=== PATIENT | female | born 1955 | race African-American/Black ===

== ENCOUNTER 2018-03-08 01:27 | Inpatient (IN) | payer BC ==
[2018-03-08] VITALS (55 sets, daily range): BP systolic 110–194; BP diastolic 52–119
[~2018-03-08] VITALS: Ht 170.2 cm; Wt 137.4 kg
[2018-03-08] MEDS ORDERED: SODIUM CHLORIDE 0.9% 1,000 ML IV ONE (01:33)
[2018-03-08] MEDS ORDERED: DIPHENHYDRAMINE 50MG/ML VIAL IV ONE (01:45)
[2018-03-08] MEDS ORDERED: FAMOTIDINE 20MG/2ML VIAL IV ONE (01:45)
[2018-03-08] MEDS ORDERED: LORAZEPAM 2MG/ML CPJ IV ONE (01:45)
[2018-03-08] MEDS ORDERED: METHYLPREDNISOLONE SOD SUCC 125 MG/2 ML VIAL IV ONE (01:45)
[2018-03-08 02:17] LABS: BASOPHILS % 0.8 % (0.0-2.0); EOSINOPHILS % 3.4 % (0.0-5.0); HEMATOCRIT. 36.8 % (36.0-48.0); HEMOGLOBIN. 12.6 g/dL (12.0-16.0); LYMPHOCYTES % 26.8 % (20.0-50.0); MEAN CORPUSCULAR HEMOGLOBIN 34.9 pg (28.0-32.0); MEAN CORPUSCULAR VOLUME 102.1 fL (81.0-99.0); MEAN PLATELET VOLUME 11.6 fl (7.4-10.4); MONOCYTES % 8.3 % (2.0-8.0); NEUTROPHILS % 60.7 % (40.0-76.0); PLATELET 242 x1000/uL (130-400); RED BLOOD CELL COUNT 3.61 mill/uL (4.2-5.4)
[2018-03-08 02:22] LABS: CHLORIDE 103 mEq/L (98-107)
[2018-03-08 02:25] LABS: PROTHROMBIN TIME 9.7 sec (9.1-11.1)
[2018-03-08 03:26] LABS: CHLORIDE 104 mEq/L (98-107)
[2018-03-08] MEDS ORDERED: ALBUTEROL (0.083%) 2.5MG/3ML NEB HHN ONE (03:30)
[2018-03-08] MEDS ORDERED: CEFTRIAXONE 1 G PREMIX 50 ML IV ONE (03:45)
[2018-03-08] MEDS ORDERED: AZITHROMYCIN 500 MG in DEXT 5% WATER 250 ML IV ONE (03:45)
[2018-03-08] MEDS ORDERED: FUROSEMIDE 40MG/4ML VIAL IVP NR (08:00)
[2018-03-08] MEDS: METHYLPREDNISOLONE SOD SUCC 40 MG/ML VIAL IV SCH ×4 (09:02→23:57)
[2018-03-08] MEDS: DIPHENHYDRAMINE 50MG/ML VIAL IV SCH ×4 (09:02→23:58)
[2018-03-08] MEDS: FAMOTIDINE 20MG/2ML VIAL IV SCH ×2 (09:02→21:40)
[2018-03-08] MEDS ORDERED: SODIUM BICARBONATE 4% (2.4MEQ) 5ML VIAL IV ONE (09:34)
[2018-03-08] MEDS ORDERED: LIDOCAINE HCL 1% 10 MG/ML 10ML VIAL ONE (09:34)
[2018-03-08] MEDS: LEVOFLOXACIN 500MG PREMIX 100 ML IV SCH (10:33)
[2018-03-08] MEDS: HYDROCODONE/ACETAMINOPHEN 5/325MG TABLET PO PRN ×2 (12:09→18:26)
[2018-03-08 17:26] LABS: CLARITY URINE CLEAR (CLEAR); COLOR URINE YELLOW (YELLOW); KETONES URINE NEGATIVE (NEGATIVE); LEUKOCYTE ESTERASE URINE TRACE (NEGATIVE); NITRITE URINE NEGATIVE (NEGATIVE); OCCULT BLOOD URINE 2+ (NEGATIVE); PROTEIN URINE NEGATIVE (NEGATIVE); SPECIFIC GRAVITY URINE 1.005 (1.005-1.030); UROBILINOGEN URINE 0.2 E.U./dL (0.2-1.0)
[2018-03-08 17:47] LABS: *AMPHETAMINES SCREEN URINE NEGATIVE (NEGATIVE); *BARBITURATES SCREEN URINE NEGATIVE (NEGATIVE); *BENZODIAZEPINES SCREEN URINE NEGATIVE (NEGATIVE); *COCAINE SCREEN URINE NEGATIVE (NEGATIVE); METHADONE URINE SCREEN NEGATIVE (NEGATIVE); OPIATES URINE SCREEN PRESUMTIVE POSITIVE (NEGATIVE)
[2018-03-08 17:48] LABS: CANNABINOID URINE SCREEN NEGATIVE (NEGATIVE); PHENCYCLIDINE URINE SCREEN NEGATIVE (NEGATIVE)
[2018-03-08] MEDS ORDERED: DIPHENHYDRAMINE 50MG/ML VIAL IV NR (21:00)
[2018-03-08] MEDS ORDERED: CYCLOBENZAPRINE 10MG TABLET PO NR (23:30)
[2018-03-08] MEDS: ALLOPURINOL 300 MG TABLET PO SCH (23:58)
[2018-03-09] VITALS (56 sets, daily range): BP systolic 89–162; BP diastolic 40–89
[2018-03-09] MEDS: ZOLPIDEM TARTRATE 5MG TABLET PO PRN (01:45)
[2018-03-09] MEDS: HYDROCODONE/ACETAMINOPHEN 5/325MG TABLET PO PRN ×4 (01:49→22:52)
[2018-03-09] MEDS: METHYLPREDNISOLONE SOD SUCC 40 MG/ML VIAL IV SCH ×4 (05:54→21:03)
[2018-03-09] MEDS: DIPHENHYDRAMINE 50MG/ML VIAL IV SCH ×3 (05:55→18:58)
[2018-03-09 06:31] LABS: BASOPHILS % 0.4 % (0.0-2.0); HEMATOCRIT. 36.8 % (36.0-48.0); HEMOGLOBIN. 12.2 g/dL (12.0-16.0); LYMPHOCYTES % 12.5 % (20.0-50.0); MEAN CORPUSCULAR HEMOGLOBIN 34.3 pg (28.0-32.0); MEAN CORPUSCULAR VOLUME 103.8 fL (81.0-99.0); MEAN PLATELET VOLUME 10.4 fl (7.4-10.4); MONOCYTES % 3.5 % (2.0-8.0); NEUTROPHILS % 83.6 % (40.0-76.0); PLATELET 182 x1000/uL (130-400); RED BLOOD CELL COUNT 3.55 mill/uL (4.2-5.4); RED CELL DISTRIBUTION WIDTH 15.5 % (11.6-14.6)
[2018-03-09] MEDS: FLUTICASONE PROPIONATE 50MCG/SPRAY BOTTLE BOTHNSTRLS SCH ×2 (08:03→19:39)
[2018-03-09] MEDS: LEVOTHYROXINE SODIUM 50MCG TABLET PO SCH (08:03)
[2018-03-09 08:25] LABS: CHLORIDE 105 mEq/L (98-107)
[2018-03-09 08:30] LABS: PHOSPHORUS 2.2 mg/dL (2.5-4.9)
[2018-03-09] MEDS: SERTRALINE HCL 100MG TABLET PO SCH (09:09)
[2018-03-09] MEDS: FAMOTIDINE 20MG/2ML VIAL IV SCH ×2 (09:09→21:03)
[2018-03-09] MEDS: CYCLOBENZAPRINE 10MG TABLET PO SCH ×2 (09:09→16:25)
[2018-03-09] MEDS: ALLOPURINOL 300 MG TABLET PO SCH (09:09)
[2018-03-09] MEDS: LEVOFLOXACIN 500MG PREMIX 100 ML IV SCH (09:11)
[2018-03-09] MEDS ORDERED: FUROSEMIDE 100MG/10ML VIAL IVP SCH (10:30)
[2018-03-09] MEDS: LETROZOLE 2.5MG TABLET PO SCH (11:42)
[2018-03-09] MEDS ORDERED: FUROSEMIDE 40MG/4ML VIAL IVP NR (20:15)
[2018-03-10 05:52] VITALS: BP 173/90
[2018-03-10] MEDS: FLUTICASONE PROPIONATE 50MCG/SPRAY BOTTLE BOTHNSTRLS SCH ×2 (07:40→16:46)
[2018-03-10 08:00] VITALS: BP 117/60
[2018-03-10] MEDS: ALLOPURINOL 300 MG TABLET PO SCH (08:59)
[2018-03-10] MEDS: LEVOTHYROXINE SODIUM 50MCG TABLET PO SCH (08:59)
[2018-03-10] MEDS: CYCLOBENZAPRINE 10MG TABLET PO SCH ×2 (08:59→16:46)
[2018-03-10] MEDS: SERTRALINE HCL 100MG TABLET PO SCH (08:59)
[2018-03-10] MEDS: METHYLPREDNISOLONE SOD SUCC 40 MG/ML VIAL IV SCH ×2 (09:00→20:11)
[2018-03-10] MEDS: FAMOTIDINE 20MG/2ML VIAL IV SCH ×2 (09:00→20:11)
[2018-03-10] MEDS: HYDROCODONE/ACETAMINOPHEN 5/325MG TABLET PO PRN (09:15)
[2018-03-10 10:44] LABS: BASOPHILS % 0.2 % (0.0-2.0); HEMATOCRIT. 34.3 % (36.0-48.0); HEMOGLOBIN. 11.6 g/dL (12.0-16.0); MEAN CORPUSCULAR HEMOGLOBIN 34.6 pg (28.0-32.0); MEAN CORPUSCULAR VOLUME 101.7 fL (81.0-99.0); MEAN PLATELET VOLUME 9.3 fl (7.4-10.4); MONOCYTES % 8.7 % (2.0-8.0); NEUTROPHILS % 82.1 % (40.0-76.0); PLATELET 183 x1000/uL (130-400); RED BLOOD CELL COUNT 3.37 mill/uL (4.2-5.4); RED CELL DISTRIBUTION WIDTH 15.4 % (11.6-14.6)
[2018-03-10 10:46] LABS: PHOSPHORUS 2.2 mg/dL (2.5-4.9)
[2018-03-10] MEDS: LETROZOLE 2.5MG TABLET PO SCH (11:36)
[2018-03-10] MEDS: LEVOFLOXACIN 500MG PREMIX 100 ML IV SCH (11:37)
[2018-03-10] MEDS ORDERED: IOHEXOL-300 100 ML BOTTLE ONE (11:38)
[2018-03-10 12:00] VITALS: BP 151/77
[2018-03-10 16:00] VITALS: BP 151/77
[2018-03-10 20:00] VITALS: BP 145/54
[2018-03-10] MEDS: HYDROCODONE/ACETAMINOPHEN 10/325MG TABLET PO PRN (20:12)
[2018-03-10] MEDS: DIPHENHYDRAMINE 50MG/ML VIAL IV SCH (21:25)
[2018-03-11] VITALS: BP 157/71
[2018-03-11 00:23] LABS: CLARITY URINE CLEAR (CLEAR); COLOR URINE YELLOW (YELLOW); KETONES URINE NEGATIVE (NEGATIVE); LEUKOCYTE ESTERASE URINE TRACE (NEGATIVE); NITRITE URINE NEGATIVE (NEGATIVE); OCCULT BLOOD URINE 2+ (NEGATIVE); PH URINE 8.5 (4.5-8.0); PROTEIN URINE TRACE (NEGATIVE); SPECIFIC GRAVITY URINE 1.018 (1.005-1.030); UROBILINOGEN URINE 0.2 E.U./dL (0.2-1.0)
[2018-03-11 04:00] VITALS: BP 157/88
[2018-03-11] MEDS: DIPHENHYDRAMINE 50MG/ML VIAL IV SCH (05:21)
[2018-03-11] MEDS ORDERED: ALBUTEROL (0.083%) 2.5MG/3ML NEB HHN SCH (07:15)
[2018-03-11 07:31] LABS: PHOSPHORUS 2.7 mg/dL (2.5-4.9)
[2018-03-11] MEDS: FLUTICASONE PROPIONATE 50MCG/SPRAY BOTTLE BOTHNSTRLS SCH ×2 (07:40→18:48)
[2018-03-11 08:00] VITALS: BP 155/82
[2018-03-11 08:05] LABS: BASOPHILS % 0.1 % (0.0-2.0); HEMATOCRIT. 37.6 % (36.0-48.0); HEMOGLOBIN. 12.4 g/dL (12.0-16.0); LYMPHOCYTES % 8.8 % (20.0-50.0); MEAN CORPUSCULAR HEMOGLOBIN 33.9 pg (28.0-32.0); MEAN CORPUSCULAR VOLUME 102.5 fL (81.0-99.0); MEAN PLATELET VOLUME 9.6 fl (7.4-10.4); MONOCYTES % 9.3 % (2.0-8.0); NEUTROPHILS % 81.8 % (40.0-76.0); PLATELET 187 x1000/uL (130-400); RED BLOOD CELL COUNT 3.67 mill/uL (4.2-5.4); RED CELL DISTRIBUTION WIDTH 15.5 % (11.6-14.6)
[2018-03-11 08:54] LABS: CHLORIDE 105 mEq/L (98-107)
[2018-03-11] MEDS ORDERED: ENOXAPARIN 40MG/0.4ML SYR SUBCUT SCH (09:00)
[2018-03-11 09:03] LABS: CREATINE KINASE 92 IU/L (26-192)
[2018-03-11 09:04] LABS: CREATINE KINASE MB FRACTION 1.6 ng/mL (0.5-3.6)
[2018-03-11] MEDS: FAMOTIDINE 20MG/2ML VIAL IV SCH ×2 (09:18→21:17)
[2018-03-11] MEDS: LEVOTHYROXINE SODIUM 50MCG TABLET PO SCH (09:18)
[2018-03-11] MEDS: LETROZOLE 2.5MG TABLET PO SCH (09:19)
[2018-03-11] MEDS: CYCLOBENZAPRINE 10MG TABLET PO SCH (09:19)
[2018-03-11] MEDS: ALLOPURINOL 300 MG TABLET PO SCH (09:19)
[2018-03-11] MEDS: SERTRALINE HCL 100MG TABLET PO SCH (09:19)
[2018-03-11] MEDS: METHYLPREDNISOLONE SOD SUCC 40 MG/ML VIAL IV SCH (09:19)
[2018-03-11] MEDS: ENOXAPARIN 40MG/0.4ML SYR SUBCUT SCH ×2 (09:20→21:19)
[2018-03-11] MEDS: LEVOFLOXACIN 500MG PREMIX 100 ML IV SCH (09:20)
[2018-03-11 12:00] VITALS: BP 154/79
[2018-03-11] MEDS: ALBUTEROL (0.083%) 2.5MG/3ML NEB HHN SCH ×4 (12:00→21:26)
[2018-03-11] MEDS: SOTALOL HCL 80MG TABLET PO SCH ×2 (13:13→21:18)
[2018-03-11] MEDS: AMLODIPINE 2.5MG TABLET PO SCH ×2 (13:14→21:19)
[2018-03-11 13:47] LABS: BG BASE EXCESS 1.5 mmol/L (-2.0-2.0); BG CARBOXYHEMOGLOBIN 0.8 % (0.5-1.5); BG DEOXYHEMOGLOBIN 6.1 % (0.0-5.0); BG FRACTION INSPIRED OXYGEN 21; BG HCO3 ACT 24.1 mmol/L (22.0-26.0); BG METHEMOGLOBIN 0.3 % (0.0-1.5); BG OXYGEN SATURATION 93.8 % (92.0-98.5); BG OXYHEMOGLOBIN 92.8 % (94.0-97.0); BG PCO2 31.7 mmHg (35.0-45.0); BG PH 7.498 (7.350-7.450); BG PO2 63.8 mmHg (75.0-100.0); BG SAMPLE SITE RIGHT RADIAL; BG TOTAL HEMOGLOBIN 13.1 g/dL (12.0-18.0); BG VENT MODE ROOM AIR
[2018-03-11 16:38] LABS: CREATINE KINASE MB FRACTION 1.4 ng/mL (0.5-3.6)
[2018-03-11 20:00] VITALS: BP 168/87
[2018-03-11] MEDS ORDERED: AMLODIPINE 2.5MG TABLET PO SCH (21:00)
[2018-03-11] MEDS: ZOLPIDEM TARTRATE 5MG TABLET PO PRN (21:19)
[2018-03-12] VITALS: BP 144/78
[2018-03-12 00:03] LABS: CREATINE KINASE MB FRACTION 2.4 ng/mL (0.5-3.6)
[2018-03-12] MEDS: ALBUTEROL (0.083%) 2.5MG/3ML NEB HHN SCH ×6 (01:20→21:14)
[2018-03-12 04:00] VITALS: BP 165/75
[2018-03-12 05:30] LABS: BASOPHILS % 0.3 % (0.0-2.0); HEMATOCRIT. 37.3 % (36.0-48.0); HEMOGLOBIN. 12.4 g/dL (12.0-16.0); LYMPHOCYTES % 16.2 % (20.0-50.0); MEAN CORPUSCULAR HEMOGLOBIN 34.2 pg (28.0-32.0); MEAN CORPUSCULAR VOLUME 102.4 fL (81.0-99.0); MEAN PLATELET VOLUME 9.2 fl (7.4-10.4); MONOCYTES % 13.9 % (2.0-8.0); NEUTROPHILS % 69.6 % (40.0-76.0); PLATELET 182 x1000/uL (130-400); RED BLOOD CELL COUNT 3.64 mill/uL (4.2-5.4); RED CELL DISTRIBUTION WIDTH 15.6 % (11.6-14.6)
[2018-03-12 07:31] LABS: CHLORIDE 102 mEq/L (98-107)
[2018-03-12 08:09] VITALS: BP 135/82
[2018-03-12] MEDS: LEVOTHYROXINE SODIUM 50MCG TABLET PO SCH (08:58)
[2018-03-12] MEDS: LETROZOLE 2.5MG TABLET PO SCH (08:59)
[2018-03-12] MEDS: AMLODIPINE 2.5MG TABLET PO SCH (08:59)
[2018-03-12] MEDS: SERTRALINE HCL 100MG TABLET PO SCH (08:59)
[2018-03-12] MEDS: ENOXAPARIN 40MG/0.4ML SYR SUBCUT SCH ×2 (09:00→21:09)
[2018-03-12] MEDS: ALLOPURINOL 300 MG TABLET PO SCH (09:00)
[2018-03-12] MEDS: FAMOTIDINE 20MG/2ML VIAL IV SCH ×2 (09:00→21:09)
[2018-03-12] MEDS: SOTALOL HCL 80MG TABLET PO SCH ×2 (09:00→21:09)
[2018-03-12] MEDS: LEVOFLOXACIN 500MG PREMIX 100 ML IV SCH (10:20)
[2018-03-12 12:00] VITALS: BP 152/78
[2018-03-12 16:00] VITALS: BP 153/72
[2018-03-12 20:00] VITALS: BP 169/85
[2018-03-12] MEDS ORDERED: MAGNESIUM XX SCH (20:30)
[2018-03-12] MEDS ORDERED: MAGNESIUM OXIDE 400MG TABLET PO NR (20:45)
[2018-03-12] MEDS: AMLODIPINE 5MG TABLET PO SCH (21:08)
[2018-03-13] VITALS (7 sets, daily range): BP systolic 142–161; BP diastolic 72–93
[2018-03-13] MEDS: ALBUTEROL (0.083%) 2.5MG/3ML NEB HHN SCH ×5 (00:40→20:45)
[2018-03-13] MEDS: LEVOTHYROXINE SODIUM 50MCG TABLET PO SCH (10:14)
[2018-03-13] MEDS: FAMOTIDINE 20MG/2ML VIAL IV SCH ×2 (10:14→21:32)
[2018-03-13] MEDS: AMLODIPINE 5MG TABLET PO SCH ×2 (10:15→21:00)
[2018-03-13] MEDS: SOTALOL HCL 80MG TABLET PO SCH ×2 (10:15→21:32)
[2018-03-13] MEDS: ENOXAPARIN 40MG/0.4ML SYR SUBCUT SCH ×2 (10:23→21:32)
[2018-03-13] MEDS: SERTRALINE HCL 100MG TABLET PO SCH (11:09)
[2018-03-13] MEDS: ALLOPURINOL 300 MG TABLET PO SCH (11:10)
[2018-03-13] MEDS: LETROZOLE 2.5MG TABLET PO SCH (11:10)
[2018-03-13] MEDS ORDERED: LEVOFLOXACIN 500MG PREMIX 100 ML IV SCH (12:30)
[2018-03-13] MEDS ORDERED: LORAZEPAM 2MG/ML CPJ IV NR (15:15)
[2018-03-13 16:21] LABS: HEMATOCRIT 41.3 % (36.0-48.0); HEMOGLOBIN 13.5 g/dL (12.0-16.0); MEAN CORPUSCULAR HEMOGLOBIN 34.1 pg (28.0-32.0); PLATELET 158 x1000/uL (130-400); RED BLOOD CELL COUNT 3.97 mill/uL (4.2-5.4); RED CELL DISTRIBUTION WIDTH 15.9 % (11.6-14.6)
[2018-03-13 16:27] LABS: BG BASE EXCESS -0.2 mmol/L (-2.0-2.0); BG CARBOXYHEMOGLOBIN 1.1 % (0.5-1.5); BG DEOXYHEMOGLOBIN 4.5 % (0.0-5.0); BG FRACTION INSPIRED OXYGEN 36; BG HCO3 ACT 25.1 mmol/L (22.0-26.0); BG OXYGEN SATURATION 95.4 % (92.0-98.5); BG OXYHEMOGLOBIN 94.4 % (94.0-97.0); BG PCO2 43.6 mmHg (35.0-45.0); BG PH 7.378 (7.350-7.450); BG PO2 81.6 mmHg (75.0-100.0); BG SAMPLE SITE RIGHT RADIAL; BG TOTAL HEMOGLOBIN 13.5 g/dL (12.0-18.0); BG VENT MODE NASAL CANNULA
[2018-03-13 16:45] LABS: CHLORIDE 102 mEq/L (98-107)
[2018-03-13] MEDS ORDERED: DEXT 5%/0.45% NACL KCL 40MEQ/L 1,000 ML IV ONE (19:00)
[2018-03-13] MEDS: LEVETIRACETAM 500 MG in SODIUM CHLORIDE 0.9% 100 ML IV SCH (21:33)
[2018-03-13] MEDS: LORAZEPAM 2MG/ML CPJ IV NR (21:53)
[2018-03-14] VITALS (11 sets, daily range): BP systolic 100–151; BP diastolic 44–80
[2018-03-14] MEDS: ACETAMINOPHEN 325MG TABLET PO PRN (00:30)
[2018-03-14] MEDS: ALBUTEROL (0.083%) 2.5MG/3ML NEB HHN SCH ×6 (00:39→21:05)
[2018-03-14] MEDS: LEVOTHYROXINE SODIUM 50MCG TABLET PO SCH (07:30)
[2018-03-14] MEDS: LETROZOLE 2.5MG TABLET PO SCH (08:32)
[2018-03-14] MEDS: SOTALOL HCL 80MG TABLET PO SCH ×2 (08:32→21:00)
[2018-03-14] MEDS: AMLODIPINE 5MG TABLET PO SCH ×2 (08:32→21:00)
[2018-03-14] MEDS: LEVETIRACETAM 500 MG in SODIUM CHLORIDE 0.9% 100 ML IV SCH (08:32)
[2018-03-14] MEDS: FAMOTIDINE 20MG/2ML VIAL IV SCH ×2 (08:32→21:40)
[2018-03-14] MEDS: ENOXAPARIN 40MG/0.4ML SYR SUBCUT SCH ×2 (08:33→21:39)
[2018-03-14] MEDS: ALLOPURINOL 300 MG TABLET PO SCH (09:00)
[2018-03-14] MEDS: SERTRALINE HCL 100MG TABLET PO SCH (09:00)
[2018-03-14] MEDS ORDERED: LORAZEPAM 2MG/ML CPJ IV NR (09:15)
[2018-03-14] MEDS: METRONIDAZOLE 500 MG PREMIX 100 ML IV SCH ×2 (11:00→20:00)
[2018-03-14] MEDS: MULTIVITAMINS,THER W-MINERALS TABLET PO SCH (11:30)
[2018-03-14] MEDS: FOLIC ACID 1MG TABLET PO SCH (11:30)
[2018-03-14] MEDS: THIAMINE HCL 100MG TABLET PO SCH (11:30)
[2018-03-14] MEDS ORDERED: IOHEXOL-300 100 ML BOTTLE ONE (15:02)
[2018-03-14 15:55] LABS: ETHANOL BLOOD < 10 mg/dL
[2018-03-14] MEDS: LORAZEPAM 2MG/ML CPJ IV NR (16:45)
[2018-03-14] MEDS: LEVETIRACETAM 750 MG in SODIUM CHLORIDE 0.9% 100 ML IV SCH (21:38)
[2018-03-15] VITALS (12 sets, daily range): BP systolic 94–132; BP diastolic 53–72
[2018-03-15] MEDS: ALBUTEROL (0.083%) 2.5MG/3ML NEB HHN SCH ×7 (00:08→23:59)
[2018-03-15] MEDS: METRONIDAZOLE 500 MG PREMIX 100 ML IV SCH ×3 (03:55→18:52)
[2018-03-15] MEDS: FOLIC ACID 1MG TABLET PO SCH (08:59)
[2018-03-15] MEDS: LEVOTHYROXINE SODIUM 50MCG TABLET PO SCH (08:59)
[2018-03-15] MEDS: AMLODIPINE 5MG TABLET PO SCH ×2 (08:59→21:00)
[2018-03-15] MEDS: ENOXAPARIN 40MG/0.4ML SYR SUBCUT SCH ×2 (08:59→21:14)
[2018-03-15] MEDS: SOTALOL HCL 80MG TABLET PO SCH ×2 (09:00→21:00)
[2018-03-15] MEDS: SERTRALINE HCL 100MG TABLET PO SCH (09:00)
[2018-03-15] MEDS: THIAMINE HCL 100MG TABLET PO SCH (09:00)
[2018-03-15] MEDS: MULTIVITAMINS,THER W-MINERALS TABLET PO SCH (09:00)
[2018-03-15] MEDS: ALLOPURINOL 300 MG TABLET PO SCH (09:00)
[2018-03-15] MEDS: FAMOTIDINE 20MG/2ML VIAL IV SCH ×2 (09:00→21:14)
[2018-03-15] MEDS: LEVETIRACETAM 750 MG in SODIUM CHLORIDE 0.9% 100 ML IV SCH ×2 (09:03→21:13)
[2018-03-15] MEDS: POTASSIUM CHLORIDE 20MEQ TABLET SR PO SCH ×3 (10:13→16:12)
[2018-03-15] MEDS: LETROZOLE 2.5MG TABLET PO SCH (10:13)
[2018-03-15] MEDS ORDERED: MAGNESIUM SULFATE 3 GM in DEXT 5% WATER 100 ML IV NR (12:00)
[2018-03-15] MEDS: HYDROCODONE/ACETAMINOPHEN 10/325MG TABLET PO PRN (16:12)
[2018-03-15] MEDS: CALCIUM CARBONATE 1250MG TABLET (500MG ELEMENTAL CALCIUM) PO SCH (16:15)
[2018-03-15] MEDS: METRONIDAZOLE 500MG TABLET PO SCH (23:50)
[2018-03-16] VITALS (12 sets, daily range): BP systolic 98–136; BP diastolic 53–71
[2018-03-16] MEDS: ALBUTEROL (0.083%) 2.5MG/3ML NEB HHN SCH ×5 (04:16→20:43)
[2018-03-16 06:36] LABS: HEMOGLOBIN. 10.4 g/dL (12.0-16.0); MEAN CORPUSCULAR HEMOGLOBIN 34.5 pg (28.0-32.0); MEAN CORPUSCULAR VOLUME 103.2 fL (81.0-99.0); MEAN PLATELET VOLUME 10.1 fl (7.4-10.4); PLATELET 108 x1000/uL (130-400); RED CELL DISTRIBUTION WIDTH 15.8 % (11.6-14.6)
[2018-03-16] MEDS: METRONIDAZOLE 500MG TABLET PO SCH ×3 (06:43→21:03)
[2018-03-16 07:06] LABS: CHLORIDE 113 mEq/L (98-107)
[2018-03-16 07:15] LABS: PHOSPHORUS 2.2 mg/dL (2.5-4.9)
[2018-03-16 08:48] LABS: PLATELET ESTIMATE DECREASED
[2018-03-16] MEDS: AMLODIPINE 5MG TABLET PO SCH (09:00)
[2018-03-16] MEDS: LETROZOLE 2.5MG TABLET PO SCH (09:51)
[2018-03-16] MEDS: ENOXAPARIN 40MG/0.4ML SYR SUBCUT SCH (09:51)
[2018-03-16] MEDS: LEVETIRACETAM 750 MG in SODIUM CHLORIDE 0.9% 100 ML IV SCH ×2 (09:51→20:49)
[2018-03-16] MEDS: SOTALOL HCL 80MG TABLET PO SCH (09:52)
[2018-03-16] MEDS: FAMOTIDINE 20MG/2ML VIAL IV SCH ×2 (09:52→20:50)
[2018-03-16] MEDS: ALLOPURINOL 300 MG TABLET PO SCH (09:53)
[2018-03-16] MEDS: SERTRALINE HCL 100MG TABLET PO SCH (09:53)
[2018-03-16] MEDS: LEVOTHYROXINE SODIUM 50MCG TABLET PO SCH (09:53)
[2018-03-16] MEDS: FOLIC ACID 1MG TABLET PO SCH (09:53)
[2018-03-16] MEDS: CALCIUM CARBONATE 1250MG TABLET (500MG ELEMENTAL CALCIUM) PO SCH ×2 (09:53→17:49)
[2018-03-16] MEDS: THIAMINE HCL 100MG TABLET PO SCH (09:53)
[2018-03-16] MEDS: MULTIVITAMINS,THER W-MINERALS TABLET PO SCH (09:53)
[2018-03-16] MEDS: POTASSIUM CHLORIDE 20MEQ TABLET SR PO SCH (09:53)
[2018-03-16] MEDS: CHLORDIAZEPOXIDE 25MG CAPSULE PO SCH ×2 (09:54→20:49)
[2018-03-16] MEDS: APIXABAN 5 MG TABLET PO SCH ×2 (11:42→17:49)
[2018-03-16 12:58] LABS: CLARITY URINE TURBID (CLEAR); COLOR URINE DARK YELLOW (YELLOW); KETONES URINE NEGATIVE (NEGATIVE); LEUKOCYTE ESTERASE URINE 2+ (NEGATIVE); NITRITE URINE NEGATIVE (NEGATIVE); OCCULT BLOOD URINE TRACE (NEGATIVE); PH URINE 5.5 (4.5-8.0); PROTEIN URINE NEGATIVE (NEGATIVE); SPECIFIC GRAVITY URINE 1.016 (1.005-1.030); UROBILINOGEN URINE 0.2 E.U./dL (0.2-1.0)
[2018-03-16] MEDS: ACETAMINOPHEN 325MG TABLET PO PRN (17:49)
[2018-03-16] MEDS: SOTALOL HCL 120MG TABLET PO SCH (20:49)
[2018-03-17] VITALS (13 sets, daily range): BP systolic 97–151; BP diastolic 51–78
[2018-03-17] MEDS: ALBUTEROL (0.083%) 2.5MG/3ML NEB HHN SCH ×6 (01:53→20:02)
[2018-03-17] MEDS: METRONIDAZOLE 500MG TABLET PO SCH ×3 (05:42→21:08)
[2018-03-17] MEDS: LEVOTHYROXINE SODIUM 50MCG TABLET PO SCH (06:30)
[2018-03-17 07:21] LABS: BASOPHILS % 0.2 % (0.0-2.0); EOSINOPHILS % 3.4 % (0.0-5.0); HEMATOCRIT. 31.5 % (36.0-48.0); HEMOGLOBIN. 10.4 g/dL (12.0-16.0); LYMPHOCYTES % 29.5 % (20.0-50.0); MEAN CORPUSCULAR HEMOGLOBIN 34.2 pg (28.0-32.0); MEAN CORPUSCULAR VOLUME 103.7 fL (81.0-99.0); MONOCYTES % 14.8 % (2.0-8.0); NEUTROPHILS % 52.1 % (40.0-76.0); PLATELET 117 x1000/uL (130-400); RED BLOOD CELL COUNT 3.04 mill/uL (4.2-5.4); RED CELL DISTRIBUTION WIDTH 15.8 % (11.6-14.6)
[2018-03-17 07:22] LABS: CHLORIDE 113 mEq/L (98-107)
[2018-03-17 07:29] LABS: PHOSPHORUS 1.9 mg/dL (2.5-4.9)
[2018-03-17] MEDS: LEVETIRACETAM 750 MG in SODIUM CHLORIDE 0.9% 100 ML IV SCH ×2 (09:54→21:08)
[2018-03-17] MEDS: LETROZOLE 2.5MG TABLET PO SCH (09:54)
[2018-03-17] MEDS: FAMOTIDINE 20MG/2ML VIAL IV SCH ×2 (09:55→20:39)
[2018-03-17] MEDS: APIXABAN 5 MG TABLET PO SCH ×2 (09:55→16:46)
[2018-03-17] MEDS: AMLODIPINE 5MG TABLET PO SCH (09:55)
[2018-03-17] MEDS: THIAMINE HCL 100MG TABLET PO SCH (09:55)
[2018-03-17] MEDS: ALLOPURINOL 300 MG TABLET PO SCH (09:55)
[2018-03-17] MEDS: FOLIC ACID 1MG TABLET PO SCH (09:55)
[2018-03-17] MEDS: CALCIUM CARBONATE 1250MG TABLET (500MG ELEMENTAL CALCIUM) PO SCH ×2 (09:55→16:46)
[2018-03-17] MEDS: SOTALOL HCL 120MG TABLET PO SCH ×2 (09:55→20:38)
[2018-03-17] MEDS: CHLORDIAZEPOXIDE 25MG CAPSULE PO SCH ×2 (09:55→20:39)
[2018-03-17] MEDS: SERTRALINE HCL 100MG TABLET PO SCH (09:55)
[2018-03-17] MEDS: MULTIVITAMINS,THER W-MINERALS TABLET PO SCH (09:56)
[2018-03-18] VITALS (10 sets, daily range): BP systolic 113–147; BP diastolic 52–72
[2018-03-18] MEDS: ACETAMINOPHEN 325MG TABLET PO PRN (01:19)
[2018-03-18] MEDS: ALBUTEROL (0.083%) 2.5MG/3ML NEB HHN SCH ×4 (04:15→16:51)
[2018-03-18] MEDS: METRONIDAZOLE 500MG TABLET PO SCH (06:07)
[2018-03-18] MEDS: LEVOTHYROXINE SODIUM 50MCG TABLET PO SCH (08:27)
[2018-03-18] MEDS: AMLODIPINE 5MG TABLET PO SCH (08:43)
[2018-03-18] MEDS: FAMOTIDINE 20MG/2ML VIAL IV SCH (08:43)
[2018-03-18] MEDS: LEVETIRACETAM 750 MG in SODIUM CHLORIDE 0.9% 100 ML IV SCH (08:43)
[2018-03-18] MEDS: CHLORDIAZEPOXIDE 25MG CAPSULE PO SCH (08:44)
[2018-03-18] MEDS: SERTRALINE HCL 100MG TABLET PO SCH (08:44)
[2018-03-18] MEDS: FOLIC ACID 1MG TABLET PO SCH (08:44)
[2018-03-18] MEDS: MULTIVITAMINS,THER W-MINERALS TABLET PO SCH (08:44)
[2018-03-18] MEDS: APIXABAN 5 MG TABLET PO SCH ×2 (08:45→17:13)
[2018-03-18] MEDS: CALCIUM CARBONATE 1250MG TABLET (500MG ELEMENTAL CALCIUM) PO SCH ×2 (08:46→17:13)
[2018-03-18] MEDS: ALLOPURINOL 300 MG TABLET PO SCH (08:46)
[2018-03-18] MEDS: SOTALOL HCL 120MG TABLET PO SCH (08:46)
[2018-03-18] MEDS: LETROZOLE 2.5MG TABLET PO SCH (08:47)
[2018-03-18] MEDS: THIAMINE HCL 100MG TABLET PO SCH (08:47)
[2018-03-18] MEDS ORDERED: HYDROCODONE/ACETAMINOPHEN 5/325MG TABLET PO PRN (09:45)
[2018-03-18] MEDS ORDERED: ZOLPIDEM TARTRATE 5MG TABLET PO PRN (11:30)
[2018-03-18] MEDS ORDERED: LACTOBACILLUS GG CAPSULE PO SCH (11:30)
[2018-03-19] MEDS ORDERED: AMLODIPINE 2.5MG TABLET PO SCH (09:00)
[2018-03-19] MEDS ORDERED: ALLO100T PO (20:49)
[2018-03-19] MEDS ORDERED: MICO45CR16 VG (20:52)
[2018-03-19] MEDS ORDERED: LEVO500T89 PO (20:52)
[2018-03-19] MEDS ORDERED: FURO20TA4 PO (20:52)
[2018-03-19] MEDS ORDERED: FAMO20TA8 PO (20:52)
[2018-03-19] MEDS ORDERED: SERT20OR6 PO (20:52)
[2018-03-19] MEDS ORDERED: LEVO50TA8 PO (21:08)
[2018-03-19] MEDS ORDERED: FEBU40TA PO (21:08)
[2018-03-19] MEDS ORDERED: AZIL1TAB2 PO (21:08)
[2018-03-19] MEDS ORDERED: LACT10SO7 PO (21:08)
[2018-03-19] MEDS ORDERED: HYDR-4009 PO (21:08)
[2018-03-19] MEDS ORDERED: POTA-79 PO (21:08)
[2018-03-19] MEDS ORDERED: FAMO40TA7 PO (21:08)
[2018-03-19] MEDS ORDERED: ATOR20TA65 PO (21:08)
[2018-03-19] MEDS ORDERED: SERT-112 PO (21:08)
[2018-03-19] MEDS ORDERED: FLUT15.88 NS (21:08)
[2018-03-19] MEDS ORDERED: LETR2.5T6 PO (21:08)
[2018-03-19] MEDS ORDERED: AMLO10TA80 PO (21:08)
[2018-03-19] MEDS ORDERED: TRAM50TA PO (21:08)
[2018-03-19] MEDS ORDERED: CIPR500T25 PO (21:08)
[2018-03-19] MEDS ORDERED: SOTA80TA PO (21:08)
[2018-03-19] MEDS ORDERED: ZOLP10TA6 PO (21:08)
[2018-03-19] MEDS ORDERED: LORA1TAB PO (21:08)
[2018-03-19] MEDS ORDERED: THIA100T13 PO (21:08)
== END 2018-03-18 17:44 | DRG 915 ==
LOC: ER 01:35 → CVICU 03:41 → EDBEDREQ 03:48 → EDBEDREQSVC 03:48 → ENRESERV 04:47 → 6WST 03-09 17:00 → 7WST 03-09 21:51 → 5EST 03-13 16:05
PROVIDERS: ADMIT Internal Medicine; ATTEND Internal Medicine
PROC: 30233L1 Transfusion of Nonautologous Fresh Plasma into Peripheral Vein, Percutaneous Approach (ICD-10-PCS; principal; 2018-03-08)
PROC: 30233K1 Transfusion of Nonautologous Frozen Plasma into Peripheral Vein, Percutaneous Approach (ICD-10-PCS; 2018-03-08)
PROC: 05HY33Z Insertion of Infusion Device into Upper Vein, Percutaneous Approach (ICD-10-PCS; 2018-03-08)
PROC: B54MZZZ Ultrasonography of Right Upper Extremity Veins (ICD-10-PCS; 2018-03-08)
DX: T78.3XXA Angioneurotic edema, initial encounter (principal); J69.0 Pneumonitis due to inhalation of food and vomit; K52.1 Toxic gastroenteritis and colitis; I50.32 Chronic diastolic (congestive) heart failure; M48.54XA Collapsed vertebra, not elsewhere classified, thoracic region, initial encounter for fracture; F10.239 Alcohol dependence with withdrawal, unspecified; N39.0 Urinary tract infection, site not specified; Z68.42 Body mass index [BMI] 45.0-49.9, adult; I67.82 Cerebral ischemia; T46.4X5A Adverse effect of angiotensin-converting-enzyme inhibitors, initial encounter; M10.9 Gout, unspecified; E66.01 Morbid (severe) obesity due to excess calories; E03.9 Hypothyroidism, unspecified; G89.4 Chronic pain syndrome; F32.9 Major depressive disorder, single episode, unspecified; M17.0 Bilateral primary osteoarthritis of knee; M47.896 Other spondylosis, lumbar region; D64.9 Anemia, unspecified; G47.33 Obstructive sleep apnea (adult) (pediatric); E78.00 Pure hypercholesterolemia, unspecified; E78.5 Hyperlipidemia, unspecified; G40.909 Epilepsy, unspecified, not intractable, without status epilepticus; F22 Delusional disorders; F41.9 Anxiety disorder, unspecified; H05.20 Unspecified exophthalmos; I11.0 Hypertensive heart disease with heart failure; I48.0 Paroxysmal atrial fibrillation; K59.00 Constipation, unspecified; R13.10 Dysphagia, unspecified; R32 Unspecified urinary incontinence; J32.9 Chronic sinusitis, unspecified; F19.90 Other psychoactive substance use, unspecified, uncomplicated; R26.9 Unspecified abnormalities of gait and mobility; Y90.9 Presence of alcohol in blood, level not specified; D69.6 Thrombocytopenia, unspecified; E83.51 Hypocalcemia; E83.42 Hypomagnesemia; I95.9 Hypotension, unspecified; T37.3X5A Adverse effect of other antiprotozoal drugs, initial encounter; X58.XXXA Exposure to other specified factors, initial encounter; Z85.3 Personal history of malignant neoplasm of breast; Z90.12 Acquired absence of left breast and nipple; Z86.73 Personal history of transient ischemic attack (TIA), and cerebral infarction without residual deficits; Z88.8 Allergy status to other drugs, medicaments and biological substances; Z87.891 Personal history of nicotine dependence; Z79.899 Other long term (current) drug therapy; Y92.89 Other specified places as the place of occurrence of the external cause; Z82.49 Family history of ischemic heart disease and other diseases of the circulatory system; Z90.710 Acquired absence of both cervix and uterus; Y93.89 Activity, other specified; Y99.8 Other external cause status
CPT/HCPCS: 36415; 36430; 36569; 36600; 70470; 70491; 71045; 71260; 72125; 72128; 72131; 76937; 80048; 80053; 80305; 81003; 82310; 82375; 82550; 82553; 82805; 82962; 83605; 83735; 84100; 84443; 84484; 84550; 85025; 85027; 85610; 85651; 86850; 86900; 86927; 87040; 87070; 87077; 87086; 93005; 93306; 93970; 94640; 96361; 96374; 96375; 97110; 97162; 97164; 97166; 97167; 97530; 99291; A6261; C1725; C1769; G0482; J0456; J0696; J1200; J1650; J1940; J1953; J1956; J2060; J2920; J2930; J3475; J3490; J7030; J7040; J7050; J7060; J7611; P9017; Q9967; A4315

== ENCOUNTER 2018-03-18 17:45 | Inpatient (IN) | payer BC ==
[~2018-03-18] VITALS: Ht 170.2 cm; Wt 137.4 kg
[2018-03-18 18:00] VITALS: BP 148/57
[2018-03-18 20:00] VITALS: BP 151/53
[2018-03-18] MEDS ORDERED: ACETAMINOPHEN 325MG TABLET PO PRN (20:00)
[2018-03-18] MEDS ORDERED: ALBUTEROL (0.083%) 2.5MG/3ML NEB HHN PRN (21:30)
[2018-03-18 22:00] VITALS: BP 144/53
[2018-03-18] MEDS: SOTALOL HCL 120MG TABLET PO SCH (22:37)
[2018-03-18] MEDS: FAMOTIDINE 20MG TABLET PO SCH (22:37)
[2018-03-18] MEDS: LEVETIRACETAM 500MG TABLET PO SCH (22:37)
[2018-03-18] MEDS: CHLORDIAZEPOXIDE 25MG CAPSULE PO SCH (22:37)
[2018-03-18 23:47] LABS: CLARITY URINE CLOUDY (CLEAR); COLOR URINE DARK YELLOW (YELLOW); KETONES URINE NEGATIVE (NEGATIVE); LEUKOCYTE ESTERASE URINE 2+ (NEGATIVE); NITRITE URINE NEGATIVE (NEGATIVE); OCCULT BLOOD URINE 1+ (NEGATIVE); PH URINE 5.5 (4.5-8.0); PROTEIN URINE TRACE (NEGATIVE); UROBILINOGEN URINE 0.2 E.U./dL (0.2-1.0)
[2018-03-19] MEDS ORDERED: ZOLPIDEM TARTRATE 5MG TABLET PO PRN (03:15)
[2018-03-19] MEDS: HYDROCODONE/ACETAMINOPHEN 5/325MG TABLET PO PRN (05:00)
[2018-03-19] MEDS: LEVOTHYROXINE SODIUM 50MCG TABLET PO SCH (06:04)
[2018-03-19 08:00] VITALS: BP 132/71
[2018-03-19 09:29] LABS: CHLORIDE 113 mEq/L (98-107)
[2018-03-19 09:45] LABS: BASOPHILS % 0.3 % (0.0-2.0); EOSINOPHILS % 1.3 % (0.0-5.0); HEMATOCRIT. 29.9 % (36.0-48.0); LYMPHOCYTES % 15.4 % (20.0-50.0); MEAN CORPUSCULAR HEMOGLOBIN 34.4 pg (28.0-32.0); MEAN CORPUSCULAR VOLUME 102.4 fL (81.0-99.0); MEAN PLATELET VOLUME 10.2 fl (7.4-10.4); MONOCYTES % 8.9 % (2.0-8.0); NEUTROPHILS % 74.1 % (40.0-76.0); PLATELET 121 x1000/uL (130-400); RED BLOOD CELL COUNT 2.91 mill/uL (4.2-5.4); RED CELL DISTRIBUTION WIDTH 15.1 % (11.6-14.6)
[2018-03-19] MEDS: HYDROCODONE/ACETAMINOPHEN 10/325MG TABLET PO PRN ×2 (09:52→17:12)
[2018-03-19] MEDS: CHLORDIAZEPOXIDE 25MG CAPSULE PO SCH ×2 (09:54→21:36)
[2018-03-19] MEDS: CALCIUM CARBONATE 1250MG TABLET (500MG ELEMENTAL CALCIUM) PO SCH ×2 (09:54→17:12)
[2018-03-19] MEDS: FAMOTIDINE 20MG TABLET PO SCH ×2 (09:54→21:38)
[2018-03-19] MEDS: FOLIC ACID 1MG TABLET PO SCH (09:54)
[2018-03-19] MEDS: MULTIVITAMINS,THER W-MINERALS TABLET PO SCH (09:54)
[2018-03-19] MEDS: AMLODIPINE 2.5MG TABLET PO SCH (09:55)
[2018-03-19] MEDS: LEVETIRACETAM 500MG TABLET PO SCH ×2 (09:55→21:37)
[2018-03-19] MEDS: SERTRALINE HCL 100MG TABLET PO SCH (09:55)
[2018-03-19] MEDS: APIXABAN 5 MG TABLET PO SCH ×2 (09:55→17:12)
[2018-03-19] MEDS: ALLOPURINOL 300 MG TABLET PO SCH (09:55)
[2018-03-19] MEDS: LACTOBACILLUS GG CAPSULE PO SCH (09:55)
[2018-03-19] MEDS: THIAMINE HCL 100MG TABLET PO SCH (09:55)
[2018-03-19] MEDS: SOTALOL HCL 120MG TABLET PO SCH ×2 (09:56→21:37)
[2018-03-19] MEDS ORDERED: NON FORMULARY PATIENT HOME MED EA XX SCH (11:00)
[2018-03-19] MEDS: LETROZOLE 2.5MG TABLET PO SCH (12:23)
[2018-03-19] MEDS: PANTOPRAZOLE 40MG DR TABLET PO SCH (12:25)
[2018-03-19] MEDS: DOCUSATE SODIUM 100MG CAPSULE PO SCH (17:12)
[2018-03-19 20:00] VITALS: BP 140/62
[2018-03-19] MEDS ORDERED: ALLO100T PO (20:49)
[2018-03-19] MEDS ORDERED: FURO20TA4 PO (20:52)
[2018-03-19] MEDS ORDERED: LEVO500T89 PO (20:52)
[2018-03-19] MEDS ORDERED: FAMO20TA8 PO (20:52)
[2018-03-19] MEDS ORDERED: MICO45CR16 VG (20:52)
[2018-03-19] MEDS ORDERED: SERT20OR6 PO (20:52)
[2018-03-19] MEDS ORDERED: LACT10SO7 PO (21:08)
[2018-03-19] MEDS ORDERED: POTA-79 PO (21:08)
[2018-03-19] MEDS ORDERED: FEBU40TA PO (21:08)
[2018-03-19] MEDS ORDERED: ATOR20TA65 PO (21:08)
[2018-03-19] MEDS ORDERED: CIPR500T25 PO (21:08)
[2018-03-19] MEDS ORDERED: SOTA80TA PO (21:08)
[2018-03-19] MEDS ORDERED: FAMO40TA7 PO (21:08)
[2018-03-19] MEDS ORDERED: SERT-112 PO (21:08)
[2018-03-19] MEDS ORDERED: FLUT15.88 NS (21:08)
[2018-03-19] MEDS ORDERED: AZIL1TAB2 PO (21:08)
[2018-03-19] MEDS ORDERED: AMLO10TA80 PO (21:08)
[2018-03-19] MEDS ORDERED: LETR2.5T6 PO (21:08)
[2018-03-19] MEDS ORDERED: TRAM50TA PO (21:08)
[2018-03-19] MEDS ORDERED: HYDR-4009 PO (21:08)
[2018-03-19] MEDS ORDERED: LORA1TAB PO (21:08)
[2018-03-19] MEDS ORDERED: THIA100T13 PO (21:08)
[2018-03-19] MEDS ORDERED: ZOLP10TA6 PO (21:08)
[2018-03-19] MEDS ORDERED: LEVO50TA8 PO (21:08)
[2018-03-19] MEDS: POLYETHYLENE GLYCOL 3350 (17GM) 1 DOSE PACK PO SCH (21:38)
[2018-03-19] MEDS: ULORIC 40 MG PO SCH (21:38)
[2018-03-19] MEDS: OXYBUTYNIN CHLORIDE 5MG TABLET PO SCH (21:46)
[2018-03-20 01:30] VITALS: BP 130/64
[2018-03-20] MEDS: HYDROCODONE/ACETAMINOPHEN 10/325MG TABLET PO PRN ×4 (01:30→22:28)
[2018-03-20] MEDS: LEVOTHYROXINE SODIUM 50MCG TABLET PO SCH (06:11)
[2018-03-20] MEDS: PANTOPRAZOLE 40MG DR TABLET PO SCH (06:11)
[2018-03-20] MEDS: OXYBUTYNIN CHLORIDE 5MG TABLET PO SCH ×3 (06:11→22:27)
[2018-03-20 07:00] VITALS: BP 133/62
[2018-03-20] MEDS: ALLOPURINOL 300 MG TABLET PO SCH (09:44)
[2018-03-20] MEDS: FAMOTIDINE 20MG TABLET PO SCH ×2 (09:45→22:28)
[2018-03-20] MEDS: DOCUSATE SODIUM 100MG CAPSULE PO SCH ×2 (09:45→16:45)
[2018-03-20] MEDS: LEVETIRACETAM 500MG TABLET PO SCH ×2 (09:45→22:28)
[2018-03-20] MEDS: CHLORDIAZEPOXIDE 25MG CAPSULE PO SCH ×2 (09:45→22:29)
[2018-03-20] MEDS: FOLIC ACID 1MG TABLET PO SCH (09:46)
[2018-03-20] MEDS: LACTOBACILLUS GG CAPSULE PO SCH (09:46)
[2018-03-20] MEDS: CALCIUM CARBONATE 1250MG TABLET (500MG ELEMENTAL CALCIUM) PO SCH ×2 (09:46→16:45)
[2018-03-20] MEDS: SERTRALINE HCL 100MG TABLET PO SCH (09:46)
[2018-03-20] MEDS: MULTIVITAMINS,THER W-MINERALS TABLET PO SCH (09:46)
[2018-03-20] MEDS: APIXABAN 5 MG TABLET PO SCH ×2 (09:46→16:45)
[2018-03-20] MEDS: LETROZOLE 2.5MG TABLET PO SCH (09:53)
[2018-03-20] MEDS: THIAMINE HCL 100MG TABLET PO SCH (09:54)
[2018-03-20 10:50] VITALS: BP 116/59
[2018-03-20] MEDS: AMLODIPINE 2.5MG TABLET PO SCH (11:07)
[2018-03-20] MEDS: SOTALOL HCL 120MG TABLET PO SCH ×2 (11:08→21:00)
[2018-03-20] MEDS: LIDOCAINE 5% PATCH TOP SCH (15:27)
[2018-03-20 19:21] LABS: CLARITY URINE CLOUDY (CLEAR); COLOR URINE DARK YELLOW (YELLOW); KETONES URINE TRACE (NEGATIVE); LEUKOCYTE ESTERASE URINE TRACE (NEGATIVE); NITRITE URINE NEGATIVE (NEGATIVE); OCCULT BLOOD URINE 1+ (NEGATIVE); PROTEIN URINE NEGATIVE (NEGATIVE); SPECIFIC GRAVITY URINE 1.024 (1.005-1.030); UROBILINOGEN URINE 0.2 E.U./dL (0.2-1.0)
[2018-03-20 20:00] VITALS: BP 134/56
[2018-03-20] MEDS: POLYETHYLENE GLYCOL 3350 (17GM) 1 DOSE PACK PO SCH (21:00)
[2018-03-20] MEDS: ULORIC 40 MG PO SCH (22:29)
[2018-03-21] MEDS: PANTOPRAZOLE 40MG DR TABLET PO SCH (07:04)
[2018-03-21] MEDS: LEVOTHYROXINE SODIUM 50MCG TABLET PO SCH (07:04)
[2018-03-21] MEDS: OXYBUTYNIN CHLORIDE 5MG TABLET PO SCH ×3 (07:04→21:43)
[2018-03-21 08:00] VITALS: BP 131/58
[2018-03-21 08:05] LABS: BASOPHILS % 0.5 % (0.0-2.0); EOSINOPHILS % 2.4 % (0.0-5.0); HEMATOCRIT. 29.6 % (36.0-48.0); HEMOGLOBIN. 9.7 g/dL (12.0-16.0); LYMPHOCYTES % 21.1 % (20.0-50.0); MEAN CORPUSCULAR HEMOGLOBIN 33.9 pg (28.0-32.0); MEAN CORPUSCULAR VOLUME 103.2 fL (81.0-99.0); MEAN PLATELET VOLUME 10.8 fl (7.4-10.4); MONOCYTES % 9.6 % (2.0-8.0); NEUTROPHILS % 66.4 % (40.0-76.0); PLATELET 131 x1000/uL (130-400); RED BLOOD CELL COUNT 2.87 mill/uL (4.2-5.4); RED CELL DISTRIBUTION WIDTH 15.4 % (11.6-14.6)
[2018-03-21] MEDS: HYDROCODONE/ACETAMINOPHEN 10/325MG TABLET PO PRN ×2 (08:28→15:51)
[2018-03-21 08:50] LABS: CHLORIDE 111 mEq/L (98-107)
[2018-03-21] MEDS: DOCUSATE SODIUM 100MG CAPSULE PO SCH ×2 (09:00→16:39)
[2018-03-21] MEDS: SOTALOL HCL 120MG TABLET PO SCH ×2 (09:00→21:00)
[2018-03-21 09:02] LABS: PHOSPHORUS 2.5 mg/dL (2.5-4.9)
[2018-03-21 09:03] LABS: TOTAL IRON BINDING CAPACITY 189 ug/dL (250-450)
[2018-03-21 10:15] LABS: FOLIC ACID (FOLATE) SERUM >20 ng/mL ng/mL (>5.38)
[2018-03-21 10:21] LABS: FERRITIN 239 ng/mL (10-291)
[2018-03-21 10:27] LABS: VITAMIN B12 SERUM 511 pg/mL (211-911)
[2018-03-21 10:30] VITALS: BP 136/62
[2018-03-21] MEDS: APIXABAN 5 MG TABLET PO SCH ×2 (10:31→16:39)
[2018-03-21] MEDS: CALCIUM CARBONATE 1250MG TABLET (500MG ELEMENTAL CALCIUM) PO SCH ×2 (10:32→16:39)
[2018-03-21] MEDS: ALLOPURINOL 300 MG TABLET PO SCH (10:32)
[2018-03-21] MEDS: LACTOBACILLUS GG CAPSULE PO SCH (10:32)
[2018-03-21] MEDS: FOLIC ACID 1MG TABLET PO SCH (10:32)
[2018-03-21] MEDS: LEVETIRACETAM 500MG TABLET PO SCH ×2 (10:32→21:43)
[2018-03-21] MEDS: THIAMINE HCL 100MG TABLET PO SCH (10:32)
[2018-03-21] MEDS: MULTIVITAMINS,THER W-MINERALS TABLET PO SCH (10:32)
[2018-03-21] MEDS: AMLODIPINE 2.5MG TABLET PO SCH (10:33)
[2018-03-21] MEDS: FAMOTIDINE 20MG TABLET PO SCH (10:33)
[2018-03-21] MEDS: SERTRALINE HCL 100MG TABLET PO SCH (10:33)
[2018-03-21] MEDS: LETROZOLE 2.5MG TABLET PO SCH (10:34)
[2018-03-21] MEDS: CHLORDIAZEPOXIDE 25MG CAPSULE PO SCH ×2 (10:34→21:43)
[2018-03-21] MEDS: LIDOCAINE 5% PATCH TOP SCH (10:35)
[2018-03-21] MEDS ORDERED: MAGNESIUM SULFATE 2 GM in DEXTROSE 5% WATER 50 ML IV NR (14:00)
[2018-03-21 15:45] VITALS: BP 151/50
[2018-03-21] MEDS: DICLOFENAC SODIUM 75MG DR (EC) TABLET PO SCH (16:39)
[2018-03-21 20:00] VITALS: BP 136/52
[2018-03-21] MEDS: POLYETHYLENE GLYCOL 3350 (17GM) 1 DOSE PACK PO SCH (21:00)
[2018-03-21] MEDS: ULORIC 40 MG PO SCH (21:44)
[2018-03-22] MEDS: IRON SUCROSE COMPLEX 100 MG in SODIUM CHLORIDE 0.9% 100 ML IV SCH ×2 (02:12→23:24)
[2018-03-22] MEDS: HYDROCODONE/ACETAMINOPHEN 10/325MG TABLET PO PRN (03:38)
[2018-03-22] MEDS: OXYBUTYNIN CHLORIDE 5MG TABLET PO SCH ×3 (06:12→23:26)
[2018-03-22] MEDS: PANTOPRAZOLE 40MG DR TABLET PO SCH (06:12)
[2018-03-22] MEDS: LEVOTHYROXINE SODIUM 50MCG TABLET PO SCH (06:12)
[2018-03-22 08:00] VITALS: BP 143/53
[2018-03-22] MEDS: AMLODIPINE 2.5MG TABLET PO SCH (09:00)
[2018-03-22] MEDS: SOTALOL HCL 120MG TABLET PO SCH ×2 (09:00→21:00)
[2018-03-22] MEDS: LACTOBACILLUS GG CAPSULE PO SCH (09:48)
[2018-03-22] MEDS: LIDOCAINE 5% PATCH TOP SCH (09:48)
[2018-03-22] MEDS: ALLOPURINOL 300 MG TABLET PO SCH (09:48)
[2018-03-22] MEDS: APIXABAN 5 MG TABLET PO SCH ×2 (09:49→17:59)
[2018-03-22] MEDS: DOCUSATE SODIUM 100MG CAPSULE PO SCH ×2 (09:50→17:59)
[2018-03-22] MEDS: CALCIUM CARBONATE 1250MG TABLET (500MG ELEMENTAL CALCIUM) PO SCH ×2 (09:50→17:59)
[2018-03-22] MEDS: CHLORDIAZEPOXIDE 25MG CAPSULE PO SCH ×2 (09:50→23:25)
[2018-03-22] MEDS: SERTRALINE HCL 100MG TABLET PO SCH (09:51)
[2018-03-22] MEDS: MULTIVITAMINS,THER W-MINERALS TABLET PO SCH (09:51)
[2018-03-22] MEDS: FOLIC ACID 1MG TABLET PO SCH (09:51)
[2018-03-22] MEDS: DICLOFENAC SODIUM 75MG DR (EC) TABLET PO SCH ×2 (09:51→17:59)
[2018-03-22] MEDS: LEVETIRACETAM 500MG TABLET PO SCH ×2 (09:57→23:25)
[2018-03-22] MEDS: HYDROCODONE/ACETAMINOPHEN 5/325MG TABLET PO PRN (09:59)
[2018-03-22] MEDS: THIAMINE HCL 100MG TABLET PO SCH (10:23)
[2018-03-22] MEDS: LETROZOLE 2.5MG TABLET PO SCH (10:24)
[2018-03-22 20:00] VITALS: BP 123/53
[2018-03-22] MEDS: POLYETHYLENE GLYCOL 3350 (17GM) 1 DOSE PACK PO SCH (21:00)
[2018-03-22] MEDS: ULORIC 40 MG PO SCH (23:29)
[2018-03-23] MEDS: OXYBUTYNIN CHLORIDE 5MG TABLET PO SCH ×3 (06:53→22:10)
[2018-03-23] MEDS: PANTOPRAZOLE 40MG DR TABLET PO SCH (06:53)
[2018-03-23] MEDS: LEVOTHYROXINE SODIUM 50MCG TABLET PO SCH (06:53)
[2018-03-23 07:07] LABS: BASOPHILS % 0.3 % (0.0-2.0); EOSINOPHILS % 3.2 % (0.0-5.0); HEMOGLOBIN. 8.8 g/dL (12.0-16.0); LYMPHOCYTES % 15.9 % (20.0-50.0); MEAN CORPUSCULAR VOLUME 102.9 fL (81.0-99.0); MEAN PLATELET VOLUME 10.4 fl (7.4-10.4); MONOCYTES % 8.3 % (2.0-8.0); NEUTROPHILS % 72.3 % (40.0-76.0); PLATELET 149 x1000/uL (130-400); RED BLOOD CELL COUNT 2.53 mill/uL (4.2-5.4); RED CELL DISTRIBUTION WIDTH 15.3 % (11.6-14.6)
[2018-03-23] MEDS ORDERED: LACTULOSE 20G/30ML UDC PO NR (07:15)
[2018-03-23] MEDS ORDERED: NA PHOS,M-B/NA PHOS,DI-BA ENEMA 118ML PR NR ×2 (07:15→22:30)
[2018-03-23 08:21] VITALS: BP 116/44
[2018-03-23] MEDS: CALCIUM CARBONATE 1250MG TABLET (500MG ELEMENTAL CALCIUM) PO SCH ×2 (09:42→17:17)
[2018-03-23] MEDS: DOCUSATE SODIUM 100MG CAPSULE PO SCH ×2 (09:42→17:13)
[2018-03-23] MEDS: THIAMINE HCL 100MG TABLET PO SCH (09:42)
[2018-03-23] MEDS: MULTIVITAMINS,THER W-MINERALS TABLET PO SCH (09:42)
[2018-03-23] MEDS: LACTOBACILLUS GG CAPSULE PO SCH (09:42)
[2018-03-23] MEDS: SOTALOL HCL 120MG TABLET PO SCH ×2 (09:42→22:09)
[2018-03-23] MEDS: APIXABAN 5 MG TABLET PO SCH ×2 (09:42→17:13)
[2018-03-23] MEDS: ALLOPURINOL 300 MG TABLET PO SCH (09:42)
[2018-03-23] MEDS: HYDROCODONE/ACETAMINOPHEN 10/325MG TABLET PO PRN ×2 (09:43→17:16)
[2018-03-23] MEDS: FOLIC ACID 1MG TABLET PO SCH (09:43)
[2018-03-23] MEDS: SERTRALINE HCL 100MG TABLET PO SCH (09:43)
[2018-03-23] MEDS: CHLORDIAZEPOXIDE 25MG CAPSULE PO SCH ×3 (09:43→23:13)
[2018-03-23] MEDS: AMLODIPINE 2.5MG TABLET PO SCH (09:43)
[2018-03-23] MEDS: DICLOFENAC SODIUM 75MG DR (EC) TABLET PO SCH ×2 (09:43→18:57)
[2018-03-23] MEDS: LIDOCAINE 5% PATCH TOP SCH (09:44)
[2018-03-23] MEDS: LEVETIRACETAM 500MG TABLET PO SCH ×2 (09:44→22:09)
[2018-03-23] MEDS: LETROZOLE 2.5MG TABLET PO SCH (10:40)
[2018-03-23 20:00] VITALS: BP 153/59
[2018-03-23] MEDS ORDERED: NON FORMULARY PATIENT HOME MED EA XX SCH (20:45)
[2018-03-23] MEDS: IRON SUCROSE COMPLEX 100 MG in SODIUM CHLORIDE 0.9% 100 ML IV SCH (22:07)
[2018-03-23] MEDS: POLYETHYLENE GLYCOL 3350 (17GM) 1 DOSE PACK PO SCH (22:09)
[2018-03-23] MEDS: ULORIC 40 MG PO SCH (22:10)
[2018-03-24] MEDS ORDERED: HYDROCODONE/ACETAMINOPHEN 5/325MG TABLET PO PRN (02:00)
[2018-03-24] MEDS: PANTOPRAZOLE 40MG DR TABLET PO SCH (06:15)
[2018-03-24] MEDS: LEVOTHYROXINE SODIUM 75MCG TABLET PO SCH (06:15)
[2018-03-24] MEDS: OXYBUTYNIN CHLORIDE 5MG TABLET PO SCH ×3 (06:15→21:50)
[2018-03-24 06:38] LABS: BASOPHILS % 0.4 % (0.0-2.0); EOSINOPHILS % 2.5 % (0.0-5.0); HEMOGLOBIN. 8.7 g/dL (12.0-16.0); LYMPHOCYTES % 10.8 % (20.0-50.0); MEAN CORPUSCULAR HEMOGLOBIN 34.6 pg (28.0-32.0); MEAN CORPUSCULAR VOLUME 103.4 fL (81.0-99.0); MEAN PLATELET VOLUME 9.9 fl (7.4-10.4); MONOCYTES % 7.1 % (2.0-8.0); NEUTROPHILS % 79.2 % (40.0-76.0); PLATELET 150 x1000/uL (130-400); RED BLOOD CELL COUNT 2.52 mill/uL (4.2-5.4); RED CELL DISTRIBUTION WIDTH 15.3 % (11.6-14.6)
[2018-03-24 07:22] LABS: PHOSPHORUS 2.8 mg/dL (2.5-4.9)
[2018-03-24 08:00] VITALS: BP 106/49
[2018-03-24] MEDS: LIDOCAINE 5% PATCH TOP SCH (08:51)
[2018-03-24] MEDS: LETROZOLE 2.5MG TABLET PO SCH (08:51)
[2018-03-24] MEDS: HYDROCODONE/ACETAMINOPHEN 10/325MG TABLET PO PRN (08:52)
[2018-03-24] MEDS: THIAMINE HCL 100MG TABLET PO SCH (08:52)
[2018-03-24] MEDS: FOLIC ACID 1MG TABLET PO SCH (08:52)
[2018-03-24] MEDS: MULTIVITAMINS,THER W-MINERALS TABLET PO SCH (08:52)
[2018-03-24] MEDS: DOCUSATE SODIUM 100MG CAPSULE PO SCH ×2 (08:52→18:15)
[2018-03-24] MEDS: LEVETIRACETAM 500MG TABLET PO SCH ×2 (08:53→20:55)
[2018-03-24] MEDS: ALLOPURINOL 300 MG TABLET PO SCH (08:53)
[2018-03-24] MEDS: CHLORDIAZEPOXIDE 25MG CAPSULE PO SCH ×2 (08:53→20:55)
[2018-03-24] MEDS: APIXABAN 5 MG TABLET PO SCH ×2 (08:53→18:15)
[2018-03-24] MEDS: LACTOBACILLUS GG CAPSULE PO SCH (08:53)
[2018-03-24] MEDS: SERTRALINE HCL 100MG TABLET PO SCH (08:53)
[2018-03-24] MEDS: CALCIUM CARBONATE 1250MG TABLET (500MG ELEMENTAL CALCIUM) PO SCH ×2 (08:53→18:15)
[2018-03-24] MEDS: SOTALOL HCL 120MG TABLET PO SCH ×2 (08:54→20:55)
[2018-03-24] MEDS: OXYCODONE HCL 5MG TABLET PO SCH (18:16)
[2018-03-24 20:00] VITALS: BP 116/45
[2018-03-24] MEDS: IRON SUCROSE COMPLEX 100 MG in SODIUM CHLORIDE 0.9% 100 ML IV SCH (20:54)
[2018-03-24] MEDS: ULORIC 40 MG PO SCH (20:55)
[2018-03-24] MEDS: FAMOTIDINE 20MG TABLET PO SCH (20:55)
[2018-03-24] MEDS: POLYETHYLENE GLYCOL 3350 (17GM) 1 DOSE PACK PO SCH (20:56)
[2018-03-24] MEDS ORDERED: ZOLPIDEM TARTRATE 5MG TABLET PO PRN (21:15)
[2018-03-25] MEDS: HYDROCODONE/ACETAMINOPHEN 10/325MG TABLET PO PRN (00:20)
[2018-03-25 04:14] LABS: 25-HYDROXY VITAMIN D3 19 ng/mL (.)
[2018-03-25] MEDS: OXYBUTYNIN CHLORIDE 5MG TABLET PO SCH ×3 (06:14→21:53)
[2018-03-25] MEDS: LEVOTHYROXINE SODIUM 75MCG TABLET PO SCH (06:14)
[2018-03-25 07:31] LABS: BASOPHILS % 0.2 % (0.0-2.0); EOSINOPHILS % 3.3 % (0.0-5.0); HEMATOCRIT. 25.7 % (36.0-48.0); HEMOGLOBIN. 8.5 g/dL (12.0-16.0); LYMPHOCYTES % 14.6 % (20.0-50.0); MEAN CORPUSCULAR HEMOGLOBIN 34.1 pg (28.0-32.0); MEAN CORPUSCULAR VOLUME 103.2 fL (81.0-99.0); MEAN PLATELET VOLUME 10.3 fl (7.4-10.4); MONOCYTES % 10.5 % (2.0-8.0); NEUTROPHILS % 71.4 % (40.0-76.0); PLATELET 148 x1000/uL (130-400); RED BLOOD CELL COUNT 2.49 mill/uL (4.2-5.4); RED CELL DISTRIBUTION WIDTH 15.3 % (11.6-14.6)
[2018-03-25 08:32] VITALS: BP 115/35
[2018-03-25 08:52] LABS: CHLORIDE 110 mEq/L (98-107)
[2018-03-25] MEDS: SOTALOL HCL 120MG TABLET PO SCH ×2 (09:00→22:20)
[2018-03-25] MEDS ORDERED: LACTULOSE 20G/30ML UDC PO NR (09:45)
[2018-03-25] MEDS: LEVETIRACETAM 500MG TABLET PO SCH ×2 (09:48→21:53)
[2018-03-25] MEDS: ALLOPURINOL 300 MG TABLET PO SCH (09:49)
[2018-03-25] MEDS: CALCIUM CARBONATE 1250MG TABLET (500MG ELEMENTAL CALCIUM) PO SCH ×2 (09:49→17:54)
[2018-03-25] MEDS: DOCUSATE SODIUM 100MG CAPSULE PO SCH ×2 (09:49→17:53)
[2018-03-25] MEDS: APIXABAN 5 MG TABLET PO SCH ×2 (09:49→17:54)
[2018-03-25] MEDS: SERTRALINE HCL 100MG TABLET PO SCH (09:49)
[2018-03-25] MEDS: LACTOBACILLUS GG CAPSULE PO SCH (09:49)
[2018-03-25] MEDS: FOLIC ACID 1MG TABLET PO SCH (09:49)
[2018-03-25] MEDS: FAMOTIDINE 20MG TABLET PO SCH ×2 (09:49→21:53)
[2018-03-25] MEDS: MULTIVITAMINS,THER W-MINERALS TABLET PO SCH (09:49)
[2018-03-25] MEDS: THIAMINE HCL 100MG TABLET PO SCH (09:50)
[2018-03-25] MEDS: CHLORDIAZEPOXIDE 25MG CAPSULE PO SCH ×2 (09:50→21:53)
[2018-03-25] MEDS: LIDOCAINE 5% PATCH TOP SCH (09:52)
[2018-03-25] MEDS: LETROZOLE 2.5MG TABLET PO SCH (09:52)
[2018-03-25] MEDS: OXYCODONE HCL 5MG TABLET PO SCH ×3 (10:09→17:57)
[2018-03-25] MEDS: ERGOCALCIFEROL 50000UNITS CAPSULE PO SCH (10:10)
[2018-03-25 20:00] VITALS: BP 111/49
[2018-03-25] MEDS: POLYETHYLENE GLYCOL 3350 (17GM) 1 DOSE PACK PO SCH (21:00)
[2018-03-25] MEDS: IRON SUCROSE COMPLEX 100 MG in SODIUM CHLORIDE 0.9% 100 ML IV SCH (21:54)
[2018-03-25] MEDS: ULORIC 40 MG PO SCH (22:14)
[2018-03-26] MEDS: HYDROCODONE/ACETAMINOPHEN 10/325MG TABLET PO PRN ×2 (00:11→07:15)
[2018-03-26] MEDS: OXYBUTYNIN CHLORIDE 5MG TABLET PO SCH ×3 (07:10→21:39)
[2018-03-26] MEDS: LEVOTHYROXINE SODIUM 75MCG TABLET PO SCH (07:10)
[2018-03-26 08:10] VITALS: BP 143/51
[2018-03-26] MEDS ORDERED: BISACODYL 10MG SUPP PR PRN (09:45)
[2018-03-26] MEDS: DOCUSATE SODIUM 100MG CAPSULE PO SCH ×2 (10:24→17:59)
[2018-03-26] MEDS: SERTRALINE HCL 100MG TABLET PO SCH (10:25)
[2018-03-26] MEDS: LACTOBACILLUS GG CAPSULE PO SCH (10:25)
[2018-03-26] MEDS: FOLIC ACID 1MG TABLET PO SCH (10:25)
[2018-03-26] MEDS: MULTIVITAMINS,THER W-MINERALS TABLET PO SCH (10:25)
[2018-03-26] MEDS: CHLORDIAZEPOXIDE 25MG CAPSULE PO SCH ×2 (10:25→21:37)
[2018-03-26] MEDS: FAMOTIDINE 20MG TABLET PO SCH ×2 (10:25→21:37)
[2018-03-26] MEDS: CALCIUM CARBONATE 1250MG TABLET (500MG ELEMENTAL CALCIUM) PO SCH ×2 (10:25→17:59)
[2018-03-26] MEDS: THIAMINE HCL 100MG TABLET PO SCH (10:26)
[2018-03-26] MEDS: APIXABAN 5 MG TABLET PO SCH ×2 (10:26→17:59)
[2018-03-26] MEDS: ALLOPURINOL 300 MG TABLET PO SCH (10:27)
[2018-03-26] MEDS: SOTALOL HCL 120MG TABLET PO SCH ×2 (10:27→21:36)
[2018-03-26] MEDS: LETROZOLE 2.5MG TABLET PO SCH (10:27)
[2018-03-26] MEDS: LIDOCAINE 5% PATCH TOP SCH (10:30)
[2018-03-26] MEDS: LACTULOSE 20G/30ML UDC PO SCH ×3 (10:52→18:00)
[2018-03-26] MEDS: LEVETIRACETAM 500MG TABLET PO SCH ×2 (10:53→21:37)
[2018-03-26] MEDS: OXYCODONE HCL 5MG TABLET PO SCH ×3 (10:54→18:02)
[2018-03-26 20:00] VITALS: BP 127/81
[2018-03-26] MEDS: POLYETHYLENE GLYCOL 3350 (17GM) 1 DOSE PACK PO SCH (21:00)
[2018-03-26] MEDS: ULORIC 40 MG PO SCH (21:37)
[2018-03-26] MEDS ORDERED: THROAT LOZENGES-BENZOCAINE/MENTH/CETYLPYRD CL LOZENGES MM PRN (22:15)
[2018-03-27] MEDS: OXYBUTYNIN CHLORIDE 5MG TABLET PO SCH ×3 (06:13→21:32)
[2018-03-27] MEDS: LEVOTHYROXINE SODIUM 75MCG TABLET PO SCH (06:13)
[2018-03-27 07:08] LABS: BASOPHILS % 0.2 % (0.0-2.0); EOSINOPHILS % 3.9 % (0.0-5.0); HEMATOCRIT. 26.1 % (36.0-48.0); HEMOGLOBIN. 8.7 g/dL (12.0-16.0); LYMPHOCYTES % 24.6 % (20.0-50.0); MEAN CORPUSCULAR HEMOGLOBIN 34.2 pg (28.0-32.0); MEAN CORPUSCULAR VOLUME 102.7 fL (81.0-99.0); MEAN PLATELET VOLUME 9.9 fl (7.4-10.4); MONOCYTES % 14.6 % (2.0-8.0); NEUTROPHILS % 56.7 % (40.0-76.0); PLATELET 153 x1000/uL (130-400); RED BLOOD CELL COUNT 2.54 mill/uL (4.2-5.4); RED CELL DISTRIBUTION WIDTH 14.7 % (11.6-14.6)
[2018-03-27 07:21] LABS: CHLORIDE 107 mEq/L (98-107)
[2018-03-27 07:29] LABS: PHOSPHORUS 2.8 mg/dL (2.5-4.9)
[2018-03-27 08:00] VITALS: BP 134/55
[2018-03-27] MEDS: MULTIVITAMINS,THER W-MINERALS TABLET PO SCH (08:59)
[2018-03-27] MEDS: CALCIUM CARBONATE 1250MG TABLET (500MG ELEMENTAL CALCIUM) PO SCH ×2 (08:59→17:00)
[2018-03-27] MEDS: LACTOBACILLUS GG CAPSULE PO SCH (08:59)
[2018-03-27] MEDS: ALLOPURINOL 300 MG TABLET PO SCH (08:59)
[2018-03-27] MEDS: FOLIC ACID 1MG TABLET PO SCH (08:59)
[2018-03-27] MEDS: SERTRALINE HCL 100MG TABLET PO SCH (08:59)
[2018-03-27] MEDS: THIAMINE HCL 100MG TABLET PO SCH (08:59)
[2018-03-27] MEDS: APIXABAN 5 MG TABLET PO SCH ×2 (08:59→17:00)
[2018-03-27] MEDS: DOCUSATE SODIUM 100MG CAPSULE PO SCH ×2 (08:59→17:00)
[2018-03-27] MEDS: SOTALOL HCL 120MG TABLET PO SCH ×2 (08:59→21:39)
[2018-03-27] MEDS: FAMOTIDINE 20MG TABLET PO SCH (09:00)
[2018-03-27] MEDS: LIDOCAINE 5% PATCH TOP SCH (09:00)
[2018-03-27] MEDS: LEVETIRACETAM 500MG TABLET PO SCH ×2 (09:00→21:31)
[2018-03-27] MEDS: OXYCODONE HCL 5MG TABLET PO SCH ×3 (09:00→17:00)
[2018-03-27] MEDS: CHLORDIAZEPOXIDE 25MG CAPSULE PO SCH (09:00)
[2018-03-27] MEDS: LETROZOLE 2.5MG TABLET PO SCH (09:02)
[2018-03-27] MEDS ORDERED: MAGNESIUM 4 G PREMIX 100 ML IV NR (12:00)
[2018-03-27] MEDS ORDERED: ONDANSETRON 4MG ODT PO PRN (18:30)
[2018-03-27 20:00] VITALS: BP 132/78
[2018-03-27] MEDS ORDERED: CHLORDIAZEPOXIDE 25MG CAPSULE PO SCH (21:00)
[2018-03-27] MEDS: ULORIC 40 MG PO SCH (21:30)
[2018-03-27] MEDS: CHLORDIAZEPOXIDE 5 MG CAPSULE PO SCH (21:31)
[2018-03-27] MEDS: POLYETHYLENE GLYCOL 3350 (17GM) 1 DOSE PACK PO SCH (21:32)
[2018-03-28] MEDS: OXYBUTYNIN CHLORIDE 5MG TABLET PO SCH ×3 (06:47→20:50)
[2018-03-28] MEDS: LEVOTHYROXINE SODIUM 75MCG TABLET PO SCH (06:47)
[2018-03-28 08:00] VITALS: BP 142/64
[2018-03-28 08:31] LABS: BASOPHILS % 0.4 % (0.0-2.0); EOSINOPHILS % 4.2 % (0.0-5.0); HEMATOCRIT. 30.7 % (36.0-48.0); HEMOGLOBIN. 10.2 g/dL (12.0-16.0); LYMPHOCYTES % 22.8 % (20.0-50.0); MEAN CORPUSCULAR HEMOGLOBIN 33.6 pg (28.0-32.0); MEAN CORPUSCULAR VOLUME 101.5 fL (81.0-99.0); MEAN PLATELET VOLUME 10.1 fl (7.4-10.4); MONOCYTES % 10.9 % (2.0-8.0); NEUTROPHILS % 61.7 % (40.0-76.0); PLATELET 184 x1000/uL (130-400); RED BLOOD CELL COUNT 3.02 mill/uL (4.2-5.4); RED CELL DISTRIBUTION WIDTH 15.1 % (11.6-14.6)
[2018-03-28] MEDS: LACTOBACILLUS GG CAPSULE PO SCH (09:00)
[2018-03-28] MEDS: LETROZOLE 2.5MG TABLET PO SCH (09:00)
[2018-03-28] MEDS: LIDOCAINE 5% PATCH TOP SCH (10:26)
[2018-03-28] MEDS: SOTALOL HCL 120MG TABLET PO SCH ×2 (10:30→20:56)
[2018-03-28] MEDS: LEVETIRACETAM 500MG TABLET PO SCH ×2 (10:31→20:50)
[2018-03-28] MEDS: CHLORDIAZEPOXIDE 5 MG CAPSULE PO SCH ×2 (10:31→20:50)
[2018-03-28] MEDS: ALLOPURINOL 300 MG TABLET PO SCH (10:32)
[2018-03-28] MEDS: SERTRALINE HCL 100MG TABLET PO SCH (10:32)
[2018-03-28] MEDS: THIAMINE HCL 100MG TABLET PO SCH (10:32)
[2018-03-28] MEDS: MULTIVITAMINS,THER W-MINERALS TABLET PO SCH (10:32)
[2018-03-28] MEDS: FOLIC ACID 1MG TABLET PO SCH (10:32)
[2018-03-28] MEDS: DOCUSATE SODIUM 100MG CAPSULE PO SCH ×2 (10:32→17:22)
[2018-03-28] MEDS: CALCIUM CARBONATE 1250MG TABLET (500MG ELEMENTAL CALCIUM) PO SCH ×2 (10:32→17:22)
[2018-03-28] MEDS: APIXABAN 5 MG TABLET PO SCH ×2 (10:33→17:22)
[2018-03-28] MEDS: OXYCODONE HCL 5MG TABLET PO SCH ×3 (10:35→17:23)
[2018-03-28] MEDS: LACTULOSE 20G/30ML UDC PO SCH ×4 (14:42→22:00)
[2018-03-28] MEDS: MAGNESIUM OXIDE 400MG TABLET PO SCH (17:22)
[2018-03-28 20:00] VITALS: BP 92/69
[2018-03-28] MEDS: ULORIC 40 MG PO SCH (20:50)
[2018-03-28 21:00] VITALS: BP 164/88
[2018-03-28] MEDS: POLYETHYLENE GLYCOL 3350 (17GM) 1 DOSE PACK PO SCH (21:00)
[2018-03-28 22:15] VITALS: BP 135/69
[2018-03-29] MEDS: MAGNESIUM OXIDE 400MG TABLET PO SCH ×2 (06:17→21:02)
[2018-03-29] MEDS: LEVOTHYROXINE SODIUM 75MCG TABLET PO SCH (06:17)
[2018-03-29] MEDS: OXYBUTYNIN CHLORIDE 5MG TABLET PO SCH ×3 (06:17→20:57)
[2018-03-29] MEDS ORDERED: LACTULOSE 20G/30ML UDC PO NR (06:45)
[2018-03-29 08:00] VITALS: BP 122/62
[2018-03-29 08:21] LABS: BASOPHILS % 0.4 % (0.0-2.0); EOSINOPHILS % 5.2 % (0.0-5.0); HEMATOCRIT. 29.7 % (36.0-48.0); LYMPHOCYTES % 26.3 % (20.0-50.0); MEAN CORPUSCULAR HEMOGLOBIN 33.9 pg (28.0-32.0); MEAN CORPUSCULAR VOLUME 101.3 fL (81.0-99.0); MEAN PLATELET VOLUME 9.6 fl (7.4-10.4); MONOCYTES % 14.1 % (2.0-8.0); PLATELET 184 x1000/uL (130-400); RED BLOOD CELL COUNT 2.94 mill/uL (4.2-5.4); RED CELL DISTRIBUTION WIDTH 15.2 % (11.6-14.6)
[2018-03-29] MEDS: LETROZOLE 2.5MG TABLET PO SCH (08:35)
[2018-03-29] MEDS: FOLIC ACID 1MG TABLET PO SCH (08:35)
[2018-03-29] MEDS: DOCUSATE SODIUM 100MG CAPSULE PO SCH ×2 (08:35→16:45)
[2018-03-29] MEDS: ALLOPURINOL 300 MG TABLET PO SCH (08:35)
[2018-03-29] MEDS: CALCIUM CARBONATE 1250MG TABLET (500MG ELEMENTAL CALCIUM) PO SCH ×2 (08:35→16:45)
[2018-03-29] MEDS: APIXABAN 5 MG TABLET PO SCH ×2 (08:35→16:45)
[2018-03-29] MEDS: MULTIVITAMINS,THER W-MINERALS TABLET PO SCH (08:36)
[2018-03-29] MEDS: SERTRALINE HCL 100MG TABLET PO SCH (08:36)
[2018-03-29] MEDS: THIAMINE HCL 100MG TABLET PO SCH (08:36)
[2018-03-29] MEDS: LEVETIRACETAM 500MG TABLET PO SCH ×2 (08:38→20:57)
[2018-03-29] MEDS: SOTALOL HCL 120MG TABLET PO SCH ×2 (08:38→20:58)
[2018-03-29] MEDS: CHLORDIAZEPOXIDE 5 MG CAPSULE PO SCH (08:38)
[2018-03-29] MEDS: LIDOCAINE 5% PATCH TOP SCH (08:39)
[2018-03-29] MEDS: LACTOBACILLUS GG CAPSULE PO SCH (08:46)
[2018-03-29] MEDS: OXYCODONE HCL 5MG TABLET PO SCH ×2 (09:32→13:44)
[2018-03-29 12:37] LABS: BG BASE EXCESS 3.1 mmol/L (-2.0-2.0); BG CARBOXYHEMOGLOBIN 0.6 % (0.5-1.5); BG DEOXYHEMOGLOBIN 3.5 % (0.0-5.0); BG FRACTION INSPIRED OXYGEN 28; BG HCO3 ACT 27.8 mmol/L (22.0-26.0); BG METHEMOGLOBIN 0.1 % (0.0-1.5); BG OXYGEN SATURATION 96.5 % (92.0-98.5); BG OXYHEMOGLOBIN 95.8 % (94.0-97.0); BG PCO2 42.6 mmHg (35.0-45.0); BG PH 7.432 (7.350-7.450); BG PO2 83.7 mmHg (75.0-100.0); BG SAMPLE SITE RIGHT RADIAL; BG TOTAL HEMOGLOBIN 12.1 g/dL (12.0-18.0); BG VENT MODE NASAL CANNULA
[2018-03-29] MEDS ORDERED: OXYCODONE HCL 5MG TABLET PO SCH (17:00)
[2018-03-29 20:00] VITALS: BP 136/69
[2018-03-29] MEDS: ULORIC 40 MG PO SCH (20:58)
[2018-03-29] MEDS: POLYETHYLENE GLYCOL 3350 (17GM) 1 DOSE PACK PO SCH (20:59)
[2018-03-29] MEDS ORDERED: CHLORDIAZEPOXIDE 5 MG CAPSULE PO SCH ×2 (21:00→23:00)
[2018-03-29] MEDS ORDERED: HYDROCODONE/ACETAMINOPHEN 10/325MG TABLET PO PRN (22:45)
[2018-03-29] MEDS ORDERED: ACETAMINOPHEN 325MG TABLET PO PRN (22:45)
[2018-03-29] MEDS: HYDROCODONE/APAP 7.5/325MG 1 TAB TABLET PO PRN (23:36)
[2018-03-30] MEDS: OXYBUTYNIN CHLORIDE 5MG TABLET PO SCH ×3 (06:51→22:59)
[2018-03-30] MEDS: LEVOTHYROXINE SODIUM 75MCG TABLET PO SCH (06:51)
[2018-03-30] MEDS: MAGNESIUM OXIDE 400MG TABLET PO SCH ×3 (06:51→22:58)
[2018-03-30 08:00] VITALS: BP 143/56
[2018-03-30 08:25] LABS: BASOPHILS % 0.5 % (0.0-2.0); EOSINOPHILS % 6.6 % (0.0-5.0); HEMATOCRIT. 28.7 % (36.0-48.0); HEMOGLOBIN. 9.5 g/dL (12.0-16.0); LYMPHOCYTES % 30.6 % (20.0-50.0); MEAN CORPUSCULAR HEMOGLOBIN 33.9 pg (28.0-32.0); MEAN CORPUSCULAR VOLUME 102.1 fL (81.0-99.0); MEAN PLATELET VOLUME 9.7 fl (7.4-10.4); MONOCYTES % 13.1 % (2.0-8.0); NEUTROPHILS % 49.2 % (40.0-76.0); PLATELET 179 x1000/uL (130-400); RED BLOOD CELL COUNT 2.81 mill/uL (4.2-5.4)
[2018-03-30 09:05] LABS: CHLORIDE 105 mEq/L (98-107)
[2018-03-30] MEDS: APIXABAN 5 MG TABLET PO SCH ×2 (09:09→16:28)
[2018-03-30] MEDS: LIDOCAINE 5% PATCH TOP SCH (09:09)
[2018-03-30] MEDS: LACTOBACILLUS GG CAPSULE PO SCH (09:09)
[2018-03-30] MEDS: ALLOPURINOL 300 MG TABLET PO SCH (09:09)
[2018-03-30] MEDS: CALCIUM CARBONATE 1250MG TABLET (500MG ELEMENTAL CALCIUM) PO SCH ×2 (09:09→16:28)
[2018-03-30] MEDS: DOCUSATE SODIUM 100MG CAPSULE PO SCH ×2 (09:09→16:28)
[2018-03-30] MEDS: FOLIC ACID 1MG TABLET PO SCH (09:09)
[2018-03-30] MEDS: SOTALOL HCL 120MG TABLET PO SCH ×2 (09:10→21:05)
[2018-03-30] MEDS: MULTIVITAMINS,THER W-MINERALS TABLET PO SCH (09:10)
[2018-03-30] MEDS: SERTRALINE HCL 100MG TABLET PO SCH (09:10)
[2018-03-30 09:12] LABS: PHOSPHORUS 3.1 mg/dL (2.5-4.9)
[2018-03-30] MEDS: LEVETIRACETAM 500MG TABLET PO SCH ×2 (09:13→20:57)
[2018-03-30] MEDS: THIAMINE HCL 100MG TABLET PO SCH (09:13)
[2018-03-30] MEDS: LETROZOLE 2.5MG TABLET PO SCH (09:13)
[2018-03-30 20:00] VITALS: BP 130/65
[2018-03-30] MEDS: CHLORDIAZEPOXIDE 5 MG CAPSULE PO SCH (20:57)
[2018-03-30] MEDS: ULORIC 40 MG PO SCH (20:58)
[2018-03-30] MEDS: POLYETHYLENE GLYCOL 3350 (17GM) 1 DOSE PACK PO SCH (20:58)
[2018-03-30] MEDS: HYDROCODONE/APAP 7.5/325MG 1 TAB TABLET PO PRN (23:08)
[2018-03-31] MEDS: OXYBUTYNIN CHLORIDE 5MG TABLET PO SCH ×3 (06:49→21:25)
[2018-03-31] MEDS: LEVOTHYROXINE SODIUM 75MCG TABLET PO SCH (06:49)
[2018-03-31] MEDS: MAGNESIUM OXIDE 400MG TABLET PO SCH ×3 (06:49→21:24)
[2018-03-31 08:00] VITALS: BP 125/52
[2018-03-31] MEDS: LETROZOLE 2.5MG TABLET PO SCH (08:19)
[2018-03-31] MEDS: LACTOBACILLUS GG CAPSULE PO SCH (08:20)
[2018-03-31] MEDS: SERTRALINE HCL 100MG TABLET PO SCH (08:20)
[2018-03-31] MEDS: MULTIVITAMINS,THER W-MINERALS TABLET PO SCH (08:20)
[2018-03-31] MEDS: APIXABAN 5 MG TABLET PO SCH ×2 (08:20→16:33)
[2018-03-31] MEDS: FOLIC ACID 1MG TABLET PO SCH (08:20)
[2018-03-31] MEDS: LEVETIRACETAM 500MG TABLET PO SCH ×2 (08:20→21:25)
[2018-03-31] MEDS: THIAMINE HCL 100MG TABLET PO SCH (08:20)
[2018-03-31] MEDS: CALCIUM CARBONATE 1250MG TABLET (500MG ELEMENTAL CALCIUM) PO SCH ×2 (08:20→16:33)
[2018-03-31] MEDS: ALLOPURINOL 300 MG TABLET PO SCH (08:20)
[2018-03-31] MEDS: DOCUSATE SODIUM 100MG CAPSULE PO SCH ×2 (08:21→16:33)
[2018-03-31] MEDS: SOTALOL HCL 120MG TABLET PO SCH ×2 (08:21→21:25)
[2018-03-31] MEDS: LIDOCAINE 5% PATCH TOP SCH (08:22)
[2018-03-31] MEDS: HYDROCODONE/APAP 7.5/325MG 1 TAB TABLET PO PRN (08:31)
[2018-03-31 20:00] VITALS: BP 131/57
[2018-03-31] MEDS ORDERED: ULORIC 40MG TAB PO SCH (21:00)
[2018-03-31] MEDS: POLYETHYLENE GLYCOL 3350 (17GM) 1 DOSE PACK PO SCH (21:00)
[2018-03-31] MEDS: CHLORDIAZEPOXIDE 5 MG CAPSULE PO SCH (21:25)
[2018-04-01] MEDS: MAGNESIUM OXIDE 400MG TABLET PO SCH ×2 (06:34→13:26)
[2018-04-01] MEDS: LEVOTHYROXINE SODIUM 75MCG TABLET PO SCH (06:34)
[2018-04-01] MEDS: OXYBUTYNIN CHLORIDE 5MG TABLET PO SCH ×2 (06:34→13:26)
[2018-04-01 06:48] LABS: BASOPHILS % 0.3 % (0.0-2.0); EOSINOPHILS % 5.1 % (0.0-5.0); HEMATOCRIT. 27.4 % (36.0-48.0); HEMOGLOBIN. 9.1 g/dL (12.0-16.0); MEAN PLATELET VOLUME 9.1 fl (7.4-10.4); MONOCYTES % 8.7 % (2.0-8.0); NEUTROPHILS % 62.9 % (40.0-76.0); PLATELET 170 x1000/uL (130-400); RED BLOOD CELL COUNT 2.69 mill/uL (4.2-5.4); RED CELL DISTRIBUTION WIDTH 15.1 % (11.6-14.6)
[2018-04-01 07:43] LABS: CHLORIDE 105 mEq/L (98-107)
[2018-04-01 07:48] LABS: PHOSPHORUS 3.3 mg/dL (2.5-4.9)
[2018-04-01 08:00] VITALS: BP 152/62
[2018-04-01] MEDS: LETROZOLE 2.5MG TABLET PO SCH (08:59)
[2018-04-01] MEDS: LEVETIRACETAM 500MG TABLET PO SCH (09:00)
[2018-04-01] MEDS: SERTRALINE HCL 100MG TABLET PO SCH (09:00)
[2018-04-01] MEDS: DOCUSATE SODIUM 100MG CAPSULE PO SCH (09:00)
[2018-04-01] MEDS: APIXABAN 5 MG TABLET PO SCH (09:00)
[2018-04-01] MEDS: LACTOBACILLUS GG CAPSULE PO SCH (09:00)
[2018-04-01] MEDS: FOLIC ACID 1MG TABLET PO SCH (09:00)
[2018-04-01] MEDS: ERGOCALCIFEROL 50000UNITS CAPSULE PO SCH (09:00)
[2018-04-01] MEDS: THIAMINE HCL 100MG TABLET PO SCH (09:00)
[2018-04-01] MEDS: MULTIVITAMINS,THER W-MINERALS TABLET PO SCH (09:00)
[2018-04-01] MEDS: CALCIUM CARBONATE 1250MG TABLET (500MG ELEMENTAL CALCIUM) PO SCH (09:00)
[2018-04-01] MEDS: SOTALOL HCL 120MG TABLET PO SCH (09:01)
[2018-04-01] MEDS: LIDOCAINE 5% PATCH TOP SCH (09:02)
[2018-04-01 10:56] VITALS: BP 143/62
[2018-04-01 13:26] VITALS: BP 140/57
[2018-04-01] MEDS: HYDROCODONE/APAP 7.5/325MG 1 TAB TABLET PO PRN (13:26)
== END 2018-04-01 14:26 | DRG 56 ==
LOC: OBSVTOIN 17:45
PROVIDERS: ADMIT Physical Medicine & Rehabilitation Spinal Cord Injury Medicine; ATTEND Internal Medicine
DX: G31.2 Degeneration of nervous system due to alcohol (principal); J18.9 Pneumonia, unspecified organism; M48.50XA Collapsed vertebra, not elsewhere classified, site unspecified, initial encounter for fracture; E87.0 Hyperosmolality and hypernatremia; F10.239 Alcohol dependence with withdrawal, unspecified; F33.2 Major depressive disorder, recurrent severe without psychotic features; Z68.42 Body mass index [BMI] 45.0-49.9, adult; G40.909 Epilepsy, unspecified, not intractable, without status epilepticus; I48.91 Unspecified atrial fibrillation; G47.33 Obstructive sleep apnea (adult) (pediatric); E03.9 Hypothyroidism, unspecified; M85.80 Other specified disorders of bone density and structure, unspecified site; M17.11 Unilateral primary osteoarthritis, right knee; E78.00 Pure hypercholesterolemia, unspecified; I10 Essential (primary) hypertension; M10.9 Gout, unspecified; D69.6 Thrombocytopenia, unspecified; D64.9 Anemia, unspecified; E66.01 Morbid (severe) obesity due to excess calories; F22 Delusional disorders; E87.70 Fluid overload, unspecified; G70.9 Myoneural disorder, unspecified; D72.819 Decreased white blood cell count, unspecified; E55.9 Vitamin D deficiency, unspecified; S82.831A Other fracture of upper and lower end of right fibula, initial encounter for closed fracture; W19.XXXA Unspecified fall, initial encounter; T78.3XXA Angioneurotic edema, initial encounter; T46.4X5A Adverse effect of angiotensin-converting-enzyme inhibitors, initial encounter; Z90.10 Acquired absence of unspecified breast and nipple; Z85.3 Personal history of malignant neoplasm of breast; Z88.6 Allergy status to analgesic agent; Z88.8 Allergy status to other drugs, medicaments and biological substances; Z83.3 Family history of diabetes mellitus; Z82.49 Family history of ischemic heart disease and other diseases of the circulatory system; Z86.73 Personal history of transient ischemic attack (TIA), and cerebral infarction without residual deficits; Y93.89 Activity, other specified; Y92.89 Other specified places as the place of occurrence of the external cause; Y99.8 Other external cause status
CPT/HCPCS: 36415; 36600; 71045; 73521; 73560; 73610; 80048; 82306; 82375; 82607; 82728; 82746; 82805; 82962; 83540; 83550; 83735; 84100; 84134; 84439; 84443; 84481; 84630; 85651; 92523; 92610; 93970; 94640; 97110; 97112; 97127; 97162; 97167; 97530; 97535; A4565; A6261; G0515; J3475; J7040; J7050; J7060; J7611; L1830